=== PATIENT | male | born 1945 | race Caucasian/White ===

== ENCOUNTER 2024-04-24 09:33 | Outpatient (AMB) | payer MEDICARE, SELFPAY ==
--- NOTE | 2024-04-24 09:35 | A.OFFVIS_ITS ---
Vital Signs 04/24/24 09:38 Height 5 ft 9 in Weight 195 lb BMI 28.8 BP 155/70 H Blood Pressure Location Lt brachial Position Sitting Respiration 14 Pulse 57 Pulse Source Pulse Oximeter Pulse Oximetry (%) 99 Oxygen Delivery Method Room Air Intake Visit Reasons: Lumbar Facet Arthropathy Allergies No Known Allergies Allergy (Verified 04/24/24 09:40) Medication List - Last Reconciled 04/24/24 by Ambika Fleming LPN aspirin (Adult Aspirin Regimen) 81 mg PO DAILY atorvastatin 80 mg PO DAILY duloxetine (Cymbalta) 60 mg PO DAILY empagliflozin (Jardiance) 10 mg PO DAILY glipizide 10 mg PO BID hydrochlorothiazide 12.5 mg PO DAILY metformin 1,000 mg PO BID metoprolol succinate ER 50 mg PO DAILY ramipril 10 mg PO BID tamsulosin 0.4 mg PO BEDTIME valacyclovir (Valtrex) 500 mg PO DAILY HPI HPI Lumbar Facet Arthropathy: Details: 78-year-old male who presents today for evaluation of lumbar facet arthropathy Patient reports he had L3-L4 fusion done by Dr. RAO at [facility] in 08/2023, and he has had x-rays done prior to his back surgery(but there are no records at this time). Patient states he had received injection from Dr. Moulton, and had >75% relief following lumbar medial branch nerve blocks. He was referred here by [facility]. He states he has right hip pain which radiates to the back and this has been worsening for the past several years. He is unable to walk for a prolonged period of time and experiences severe pain especially with walking uphill but denies any pain with sitting. He also has severe pain in the foot and has difficulty standing for a long time. He states the pain is moderate but worsens occasionally depending on how long he has to stand/walk. Patient has a longstanding history of back and leg pain, and he first underwent an MRI in 2021, which showed severe for spinal stenosis at right L5-S1 level. He subsequently underwent a right L5-S1 laminotomy and some kind of fusion that he is uncertain of what it was. This took care of his right sided leg pain, but he continued to have residual low back pain on the right side. He then underwent a series of multiple injections, including 2 rounds of interlaminar epidural steroid injections, 1 caudal RENE and 1 SI joint injection at [facility], none of which provided any relief. Most recently he underwent a diagnostic facet block at L4-L5-S1 level that provided more than 50% relief with significant increase in his ability to ambulate for the duration of the diagnostic phase. He was subsequently planned for an L4-L5-S1 facet injection, but this was denied by insurance. He was then referred to us for consideration of repeat diagnostic block in anticipation of a lumbar radiofrequency ablation. Past procedures: 03/28/24: Lumbar Medial Branch Nerve Block - >75% relief. [facility] Medical History (Updated 04/24/24 @ 12:07 by Hector Auguste MD) Shingles BPH (benign prostatic hyperplasia) Diabetes mellitus Hypertension Hyperlipidemia Physical Exam Vital Signs: Last Vital Signs Pulse 57 04/24/24 09:38 Resp 14 04/24/24 09:38 BP 155/70 H 04/24/24 09:38 Pulse Ox 99 04/24/24 09:38 Oxygen Delivery Method Room Air 04/24/24 09:38 BMI result Body Mass Index 28.8 General: Appears afebrile. Alert and oriented. Mood and affect appropriate. Follows and participates in conversation appropriately. Respiratory effort is unlabored. Able to transition from sit to stand unassisted. Ambulates with bilaterally normal heel strike and toe off. Positive for facet loading on the right side. No significant pain with anterior column loading. Lumbar extension is significantly limited. Results Reviewed Results Reviewed: His MRI shows endplate degenerative changes at L3-4. Significant facet arthritis at L4-5 and L5-S1. I do not have his most recent imaging. This was based on my review of the MRI done in 2021, when this problem first started. Assessment & Plan Assessment & Plan (1) Lumbar spondylosis: Code(s): M47.816 - Spondylosis without myelopathy or radiculopathy, lumbar region Category: Medical (2) Vertebrogenic low back pain: Code(s): M54.51 - Vertebrogenic low back pain Category: Medical (3) Lumbar spinal stenosis: Code(s): M48.061 - Spinal stenosis, lumbar region without neurogenic claudication Category: Medical Plan Will schedule for a right L4-L5-S1 diagnostic medial branch blocks in anticipation of potential RFA vs PNS for his right axial low back pain. Discussed the risks and benefits of the procedure with the patient in detail. All questions were answered. A brochure was provided to the patient today in the office. Justification for interventional therapy: ? Patient with average pain > 6/10 ? Patient has exhausted conservative therapy ? Previous diagnostic injection provided >75% relief for the duration of the diagnostic phase . Patient has a good understanding of their pain condition and has appropriate mental and social support Scribed for Dr. Auguste by Ed medical sales consultant, on 04/24/2024. I, Dr. Auguste, have personally reviewed and agree with the information entered by the scribe. Coding Level of Care Code New Pt Level 4 (85835) Diagnoses Lumbar spondylosis M47.816 Vertebrogenic low back pain M54.51 Lumbar spinal stenosis M48.061
[2024-04-24 09:38] VITALS: BP 155/70; PULSE 57; RESP 14; O2SAT 99; BMI 28.8
== END 2024-04-24 10:56 | disposition home or self-care (01) ==
PROVIDERS: PCP Internal Medicine; Visit Provider Internal Medicine
DX: M47.816 Spondylosis without myelopathy or radiculopathy, lumbar region (principal); M54.51 Vertebrogenic low back pain; M48.061 Spinal stenosis, lumbar region without neurogenic claudication
CPT/HCPCS: 99204

== ENCOUNTER → 2024-04-24 09:33 | Outpatient (BNVA) | payer MEDICARE, SELFPAY | PROVIDERS: PCP Internal Medicine; Visit Provider Internal Medicine | DX: M47.816 Spondylosis without myelopathy or radiculopathy, lumbar region (principal); M54.51 Vertebrogenic low back pain; M48.061 Spinal stenosis, lumbar region without neurogenic claudication | CPT/HCPCS: 99202 ==

== ENCOUNTER 2024-05-16 06:09 | Outpatient (REF) | payer MEDICARE, SELFPAY ==
--- NOTE | ~2024-05-16 | FL_ITS ---
EXAMINATION: XR FLUOROSCOPY WITH IMAGES CLINICAL INFORMATION: Spondylosis without myelopathy or radiculopathy, lumbar region COMPARISON: None available. TECHNIQUE: Fluoroscopy provided to: Dr. Auguste Fluoroscopy time: 0.1 minutes DAP: 0.0234 mGycm2 Images: 2 FINDINGS: 2 coned-down images of the lower lumbar spine, demonstrating needle placement in the expected right facet joints L3-4, L4-5, and L5-S1 , with subsequent contrast injection. Partial laminectomies and fusion L5-S1 with hardware. Disc prosthesis present in L5-S1. No gross complication evident on the limited fluoroscopic spot images. FL/FL guidance in treatment room IMPRESSION: Fluoroscopic guidance. Please refer to the full operative report for details. Electronically signed by: Kt Plummer MD 07/11/2024 02:00 PM EDT
== END 2024-05-16 06:10 | disposition home or self-care (01) ==
LOC: CF 06:09
PROVIDERS: Visit Provider Internal Medicine
DX: M47.816 Spondylosis without myelopathy or radiculopathy, lumbar region (principal)
CPT/HCPCS: 64493; 64494; J2795; Q9967

== ENCOUNTER 2024-05-16 10:42 | Outpatient (AMB) | payer MEDICARE, SELFPAY ==
[2024-05-16 10:40] VITALS: BP 156/65; PULSE 50; RESP 16; O2SAT 97
[2024-05-16 11:15] VITALS: BP 165/65; PULSE 56; RESP 16; O2SAT 95
--- NOTE | 2024-05-16 11:20 | MHC.OFFVIS ---
Vital Signs 05/16/24 10:40 05/16/24 11:15 BP 156/65 H 165/65 H Blood Pressure Location Lt brachial Lt brachial Position Sitting Sitting Respiration 16 16 Pulse 50 56 Pulse Source Pulse Oximeter Pulse Oximeter Pulse Oximetry (%) 97 95 Oxygen Delivery Method Room Air Room Air Comment Pre-op Post-op Intake Visit Reasons: Right Dx L4-L5 MBB Allergies No Known Allergies Allergy (Verified 04/24/24 09:40) HPI HPI Right Dx L4-L5 MBB: Details: Patient presents for scheduled procedure. Denies any recent cough, cold, infection, fever or other significant changes in medical history since last office visit. [facility] Medical History (Updated 04/24/24 @ 12:07 by Hector Auguste MD) Shingles BPH (benign prostatic hyperplasia) Diabetes mellitus Hypertension Hyperlipidemia Physical Exam Vital Signs: Last Vital Signs Pulse 56 05/16/24 11:15 Resp 16 05/16/24 11:15 BP 165/65 H 05/16/24 11:15 Pulse Ox 95 05/16/24 11:15 Oxygen Delivery Method Room Air 05/16/24 11:15 Office Procedures Lumbar/Sacral Facet Inj Details: Lumbar Medial Branch Block, Right L3, L4 medial branches and L5 Dorsal Ramus (2 levels, 3 nerves) After obtaining written consent, pre-procedure blood pressure and pulse were recorded and are in the nursing record for review. The patient was placed in a prone position. The respective lumbosacral area was prepped with chloraprep and draped in sterile fashion. The skin over the target medial branch nerves was anesthetized with 0.5% lidocaine. A 22 gauge 3.5 inch needle was inserted into the target medial branch nerve under fluoroscopic guidance. No paresthesias were elicited with needle placement and aspiration was negative for blood and CSF. Next, 0.2cc of omnipaque 180 was injected to verify positioning. Next 0.5 ml 0.5% pivicaine was injected (0.5cc total per level). The identical procedure was performed at the remaining levels. The skin was cleansed and a sterile bandage was applied. Following the procedure the patient's vital signs were stable. The patient tolerated the procedure well and no complications were encountered. Following the procedure the patient's vital signs were stable. The patient was discharged home in good condition with post-procedural instructions. Time Out: Immediately prior to the procedure, the following was verbally confirmed that there is a signed consent form and that the correct patient, planned procedure, site and side are consistent with documentation and that necessary equipment and/or blood products are available prior to the start of the case. Complications: none EBL: <5 cc 68700 - with Fluoroscopy 23980 - second level, with Fluoroscopy Procedure code (CPT) selection complete Assessment & Plan Assessment & Plan (1) Lumbar spondylosis: Code(s): M47.816 - Spondylosis without myelopathy or radiculopathy, lumbar region Category: Medical Plan Patient is status post right L3, L4 medial branch and L5 dorsal ramus diagnostic nerve blocks. Patient tolerated procedure well and was discharged home in stable condition with discharge instructions. All questions were answered. We will follow-up via telephone or in clinic to assess response to therapy. A follow-up appointment was made during today's visit. Orders: Orders FL guidance in treatment room Today M47.816 - Spondylosis without myelopathy or radiculopathy, lumbar region Coding Level of Care Code Procedure Only Diagnoses Lumbar spondylosis M47.816 CPT Codes Facet Injection-Lumbar/Sacral - CPT: 38349 - with Fluoroscopy ([id number]) Facet Injection-Lumbar/Sacral - CPT: 24584 - second level, with Fluoroscopy ([id number])
== END 2024-05-16 11:13 | disposition home or self-care (01) ==
LOC: HO.PMCPRC 10:42
PROVIDERS: PCP Internal Medicine; Visit Provider Internal Medicine
DX: M47.816 Spondylosis without myelopathy or radiculopathy, lumbar region (principal)
CPT/HCPCS: 64493; 64494

== ENCOUNTER 2024-05-20 11:04 | Outpatient (AMB) | payer MEDICARE, SELFPAY ==
--- NOTE | 2024-05-20 11:05 | A.OFFVIS_ITS ---
Intake Visit Reasons: s/p Right Dx L4-L5 MBB Allergies No Known Allergies Allergy (Verified 04/24/24 09:40) HPI HPI s/p Right Dx L4-L5 MBB: Details: 78-year-old female who presents today via tele-visit for status post right diagnostic L4-L5 MBB The patient reports 75% relief for the duration of the anesthetic phase following the procedure. He reports good relief post-procedure and was able to walk up and down the hill. He states that his pain returned around 5:00 PM when he was walking his dog. He is amenable to proceed with radiofrequency ablation instead of temporary peripheral nerve stimulator. He had one round of diagnostic test injection with Dr. Moulton. Past procedures 05/16/24: Lumbar Medial Branch Block, Right L3, L4 medial branches and L5 Dorsal Ramus (2 levels, 3 nerves): 75% relief for the duration of the anesthetic phase. 03/28/24: Lumbar Medial Branch Nerve Block - >75% relief. [facility] Medical History (Updated 04/24/24 @ 12:07 by Hector Auguste MD) Shingles BPH (benign prostatic hyperplasia) Diabetes mellitus Hypertension Hyperlipidemia Review of Systems Const All systems reviewed & are unremarkable except as noted in HPI and below Telehealth Telehealth Telehealth Platform: Telephone Location of provider rendering services: practice address Location of patient: address on file Patient Identification confirmed using: Name, : Yes Telehealth method: voice only Patient verbally consented to treatment: Yes Patient verbally consented to billing insurance company: Yes Patient informed of any privacy concerns related to visit: Yes Minutes spent on Phone/Video with Pt.: 6 Results Reviewed Results Reviewed: No imaging is available for review. Assessment & Plan Assessment & Plan (1) Lumbar spondylosis: Code(s): M47.816 - Spondylosis without myelopathy or radiculopathy, lumbar region Category: Medical Plan We will schedule him for right L3-L4-L5 medial branch radiofrequency ablation. Discussed the risks and benefits of the procedure with the patient in detail. All questions were answered. The patient is on board with the plan. Justification for interventional therapy: ? Patient with average pain > 6/10 ? Patient has exhausted conservative therapy ? Patient unable to tolerate physical therapy due to pain. ? Previous both diagnostic injections provided greater than 75% relief for the duration of the anesthetic phase. . Patient has a good understanding of their pain condition and has appropriate mental and social support Scribed for Dr. Auguste by Mejia eVlazco, medical lab assistant, on 05/20/2024. I, Dr. Auguste, have personally reviewed and agree with the information entered by the scribe. Coding Level of Care Code Tele Est Pt Level 3 (71570) Diagnoses Lumbar spondylosis M47.816
== END 2024-05-20 11:05 | disposition home or self-care (01) ==
LOC: HO.PMC 11:04
PROVIDERS: PCP Internal Medicine; Visit Provider Internal Medicine
DX: M47.816 Spondylosis without myelopathy or radiculopathy, lumbar region (principal)
CPT/HCPCS: 99213

== ENCOUNTER → 2024-05-20 11:04 | Outpatient (BNVA) | payer MEDICARE, SELFPAY | PROVIDERS: PCP Internal Medicine; Visit Provider Internal Medicine ==

== ENCOUNTER 2024-07-11 06:08 | Outpatient (REF) | payer MEDICARE, SELFPAY | END 2024-07-11 06:09 | disposition home or self-care (01) | LOC: CF 06:08 | PROVIDERS: Visit Provider Internal Medicine | DX: M47.816 Spondylosis without myelopathy or radiculopathy, lumbar region (principal) | CPT/HCPCS: 64635; 64636; J2795 ==

== ENCOUNTER 2024-07-11 10:46 | Outpatient (AMB) | payer MEDICARE, SELFPAY ==
[2024-07-11 11:24] VITALS: BP 120/59; PULSE 63; RESP 17; O2SAT 98
--- NOTE | 2024-07-11 12:22 | MHC.OFFVIS ---
Vital Signs 07/11/24 11:24 07/11/24 12:23 BP 120/59 L 143/67 H Blood Pressure Location Lt brachial Lt brachial Position Sitting Sitting Respiration 17 18 Pulse 63 64 Pulse Source Pulse Oximeter Pulse Oximeter Pulse Oximetry (%) 98 99 Oxygen Delivery Method Room Air Room Air Comment Pre-op Post-op Intake Visit Reasons: Right L3-L4-L5 RFA Allergies No Known Allergies Allergy (Verified 04/24/24 09:40) HPI HPI Right L3-L4-L5 RFA: Details: Patient presents for scheduled procedure. Denies any recent cough, cold, infection, fever or other significant changes in medical history since last office visit. FORMERLY [facility] Medical History (Updated 04/24/24 @ 12:07 by Hector Auguste MD) Shingles BPH (benign prostatic hyperplasia) Diabetes mellitus Hypertension Hyperlipidemia Physical Exam Vital Signs: Last Vital Signs Pulse 64 07/11/24 12:23 Resp 18 07/11/24 12:23 BP 143/67 H 07/11/24 12:23 Pulse Ox 99 07/11/24 12:23 Oxygen Delivery Method Room Air 07/11/24 12:23 Office Procedures Details: Radiofrequency lesioning medial branch nerves, RIGHT L3 medial branch and L5 dorsal ramus (L3/4 and L5/S1) (2 levels, 2 nerves) After obtaining written consent, pre-procedure blood pressure and heart rate were stable and recorded in the nursing record. Standard monitors were applied. The patient was placed in the prone position. The lumbar area was prepped with chloraprep and draped in sterile fashion. The skin over the target for each medial branch nerve was anesthetized with 0.5% lidocaine. An 18 gauge radiofrequency cannula was advanced to each target site under fluoroscopic guidance. The anatomical landmarks for L4 medial branch could not be reliably visualized due to hardware presence so that needle placement was aborted. No paresthesias were elicited with needle placement and aspiration was negative for heme and CSF. Impedences were verified under 600 ohms. Motor testing (2 Hz) confirmed needle placement at each site within the appropriate voltage thresholds. Each site was injected with 0.5 ml 2% preservative-free lidocaine. Radiofrequency lesioning was performed for 90 seconds at 80 deg Celcius. The needle was removed, skin cleansed and a sterile bandage was applied. The patient tolerated the procedure well and no complications were encountered. Following the procedure the patient's vital signs were stable. The patient was discharged home in good condition with post-procedural instructions. Time Out: Immediately prior to the procedure, the following was verbally confirmed that there is a signed consent form and that the correct patient, planned procedure, site and side are consistent with documentation and that necessary equipment and/or blood products are available prior to the start of the case. Complications: none EBL: <5 cc 84057 - RFA Lumbar Medial Branches 04206 - Lumbar Medial Branches ADDNL Procedure code (CPT) selection complete Office Meds lidocaine (PF) 10 mg/mL (1 %) injection solution Performing Provider: Merline Patrick APRN, CNP Performing Location: [facility] Documented (not given) by: Hector Auguste MD on 07/11/24 13:23 Dose Route Admin Location Dispensed Lot Number Expiration Date NDC Material Handling Equipment [employer] 5 mL subcut mL Assessment & Plan Assessment & Plan (1) Lumbar spondylosis: Code(s): M47.816 - Spondylosis without myelopathy or radiculopathy, lumbar region Category: Medical Plan Patient is status post right L3 medial branch and L5 DR radiofrequency ablation. Patient tolerated procedure well and was discharged home in stable condition with discharge instructions. All questions were answered. We will follow-up via telephone or in clinic to assess response to therapy. A follow-up appointment was made during today's visit. Orders: Orders FL guidance in treatment room Today Merline Patrick APRN, CNP M47.816 - Spondylosis without myelopathy or radiculopathy, lumbar region AMB RFA Radiofrequency Ablation Pain Management Today Merline Patrick APRN, CNP M47.816 - Spondylosis without myelopathy or radiculopathy, lumbar region Medications: New lidocaine (PF) 5 mL subcut ONCE 5 mL 0RF Hector Auguste MD M47.816 - Spondylosis without myelopathy or radiculopathy, lumbar region Coding Level of Care Code Procedure Only Diagnoses Lumbar spondylosis M47.816 CPT Codes Radiofrequency Ablation - Rad-Ablation 3: 74727 - RFA Lumbar Medial Branches ([id number]) Radiofrequency Ablation - Rad-Ablation 4: 36901 - Lumbar Medial Branches ADDNL ([id number])
[2024-07-11 12:23] VITALS: BP 143/67; PULSE 64; RESP 18; O2SAT 99
== END 2024-07-11 12:22 | disposition home or self-care (01) ==
LOC: HO.PMCPRC 10:46
PROVIDERS: PCP Internal Medicine; Visit Provider Internal Medicine
DX: M47.816 Spondylosis without myelopathy or radiculopathy, lumbar region (principal)
CPT/HCPCS: 64635; 64636

== ENCOUNTER 2024-08-09 09:24 | Outpatient (AMB) | payer MEDICARE, SELFPAY ==
--- NOTE | 2024-08-09 09:38 | MHC.OFFVIS ---
Vital Signs 08/09/24 09:40 Height 5 ft 9 in Weight 198 lb BMI 29.2 BP 134/61 Blood Pressure Location Lt brachial Position Sitting Respiration 15 Pulse 62 Pulse Source Pulse Oximeter Pulse Oximetry (%) 100 Oxygen Delivery Method Room Air Intake Visit Reasons: s/p right L3-L4-L5 RFA Allergies No Known Allergies Allergy (Verified 08/09/24 09:41) Medication List - Last Reconciled 08/09/24 by Ambika Fleming LPN aspirin (Adult Aspirin Regimen) 81 mg PO DAILY atorvastatin 80 mg PO DAILY duloxetine (Cymbalta) 60 mg PO DAILY empagliflozin (Jardiance) 10 mg PO DAILY glipizide 10 mg PO BID hydrochlorothiazide 12.5 mg PO DAILY metformin 1,000 mg PO BID metoprolol succinate ER 50 mg PO DAILY ramipril 10 mg PO BID tamsulosin 0.4 mg PO BEDTIME valacyclovir (Valtrex) 500 mg PO DAILY HPI HPI s/p right L3-L4-L5 RFA: Details: 78-year-old male who presents today to the office for a status post right L3-L4-L5 RFA. He had some initial pain relief and was able to do some gentle walking. However, his pain started to return to the same location as before 1-2 months later. He is unable to bend or do his ADLs now. He has difficulty climbing stairs and leaning/bending forward while walking or standing but is able to walk on a flat surface. He denies any pain when sitting down. He has done an MRI and x-ray of the back. He had an MRI scan in August 2023 and states he underwent back surgery with Dr. Kerr at [facility]. He had an x-ray post-surgery. He states that his radiating pain down his leg was resolved post-surgery.?He lives with his . Past procedures 07/11/24: Radiofrequency lesioning medial branch nerves, RIGHT L3 medial branch and L5 dorsal ramus (L3/4 and L5/S1) (2 levels, 2 nerves): % relief. 05/16/24: Lumbar Medial Branch Block, Right L3, L4 medial branches and L5 Dorsal Ramus (2 levels, 3 nerves): 75% relief for the duration of the anesthetic phase. 03/28/24: Lumbar Medial Branch Nerve Block - >75% relief. [facility] Medical History (Updated 08/22/24 @ 13:50 by Hector Auguste MD) Shingles BPH (benign prostatic hyperplasia) Diabetes mellitus Hypertension Hyperlipidemia Review of Systems Const All systems reviewed & are unremarkable except as noted in HPI and below Physical Exam Vital Signs: Last Vital Signs Pulse 62 08/09/24 09:40 Resp 15 08/09/24 09:40 BP 134/61 08/09/24 09:40 Pulse Ox 100 08/09/24 09:40 Oxygen Delivery Method Room Air 08/09/24 09:40 BMI result Body Mass Index 29.2 General: Appears afebrile. Alert and oriented. Mood and affect appropriate. Follows and participates in conversation appropriately. Respiratory effort is unlabored. Able to transition from sit to stand unassisted. Ambulates with bilaterally normal heel strike and toe off. Results Reviewed Results Reviewed: August 2023: MRI of Lumbar Spine. Showed moderate spinal stenosis at L3-4 level with mild to moderate bilateral foraminal narrowing. There is significant ligamentum flavum hypertrophy and L4-5 central canal stenosis and disc herniations at L5-S1 causing right L5 nerve root compression and left traversing S1 nerve root compression. Assessment & Plan Assessment & Plan (1) Lumbar spondylosis: Code(s): M47.816 - Spondylosis without myelopathy or radiculopathy, lumbar region Category: Medical (2) Chronic low back pain: Code(s): M54.50 - Low back pain, unspecified; G89.29 - Other chronic pain Category: Medical Plan We discussed multiple different treatment options and based on order of invasiveness, we have decided to proceed with temporary nerve stimulation as a next step in his management to see if this the mediated pain and might respond to temporary nerve stimulation. We will plan for a right temporary L3 medial branch nerve stimulator placement. Discussed the risks and benefits of the procedure with the patient in detail. All questions were answered. The patient is on board with the plan. Justification for interventional therapy: ? Patient with average pain > 6/10 ? Patient has exhausted conservative therapy. ? Patient unable to tolerate physical therapy due to pain. ? Failed radiofrequency ablation of the lumbar medial branches . Patient has a good understanding of their pain condition and has appropriate mental and social support Scribed for Dr. Auguste by Mejia Velazco, medical assistant ob gyn, on 08/09/2024. I, Dr. Auguste, have personally reviewed and agree with the information entered by the scribe. Coding Level of Care Code Est Pt Level 3 (26679) Diagnoses Lumbar spondylosis M47.816 Chronic low back pain M54.50; G89.29
[2024-08-09 09:40] VITALS: BP 134/61; PULSE 62; RESP 15; O2SAT 100; BMI 29.2
== END 2024-08-09 10:45 | disposition home or self-care (01) ==
PROVIDERS: PCP Internal Medicine; Visit Provider Internal Medicine
DX: M47.816 Spondylosis without myelopathy or radiculopathy, lumbar region (principal); M54.50 Low back pain, unspecified; G89.29 Other chronic pain
CPT/HCPCS: 99213

== ENCOUNTER → 2024-08-09 09:24 | Outpatient (BNVA) | payer SELFPAY | PROVIDERS: PCP Internal Medicine; Visit Provider Internal Medicine | DX: M47.816 Spondylosis without myelopathy or radiculopathy, lumbar region (principal); G89.29 Other chronic pain; M54.50 Low back pain, unspecified; Z98.890 Other specified postprocedural states | CPT/HCPCS: 99212 ==

== ENCOUNTER 2024-08-22 06:25 | Outpatient (REF) | payer MEDICARE, SELFPAY | END 2024-08-22 06:26 | disposition home or self-care (01) | LOC: CF 06:25 | PROVIDERS: Visit Provider Internal Medicine | DX: M47.816 Spondylosis without myelopathy or radiculopathy, lumbar region (principal); M54.50 Low back pain, unspecified; G89.29 Other chronic pain | CPT/HCPCS: 64555; C1778; J2003 ==

== ENCOUNTER 2024-08-22 12:00 | Outpatient (AMB) | payer MEDICARE, SELFPAY ==
[2024-08-22 12:08] VITALS: BP 165/72; PULSE 67; O2SAT 100
--- NOTE | 2024-08-22 12:08 | A.OFFVIS_ITS ---
Vital Signs 08/22/24 12:08 08/22/24 12:42 BP 165/72 H 161/69 H Blood Pressure Location Lt brachial Lt brachial Position Sitting Sitting Pulse 67 68 Pulse Source Pulse Oximeter Pulse Oximeter Pulse Oximetry (%) 100 99 Oxygen Delivery Method Room Air Room Air Intake Visit Reasons: right L3 Sprint Allergies No Known Allergies Allergy (Verified 08/09/24 09:41) HPI HPI right L3 Sprint: Details: Patient presents for scheduled procedure. Denies any recent cough, cold, infection, fever or other significant changes in medical history since last office visit. [facility] Medical History (Updated 08/22/24 @ 13:50 by Hector Auguste MD) Shingles BPH (benign prostatic hyperplasia) Diabetes mellitus Hypertension Hyperlipidemia Physical Exam Vital Signs: Last Vital Signs Pulse 68 08/22/24 12:42 BP 161/69 H 08/22/24 12:42 Pulse Ox 99 08/22/24 12:42 Oxygen Delivery Method Room Air 08/22/24 12:42 Office Procedures Details: Lumbar Medial Branch Nerve Stimulation Lead Placement, SPR (Sprint) System, Right L3 ? After the risks, benefits and alternatives were discussed with the patient and informed consent was obtained, patient was placed in the prone position and padded to foster comfort. The skin overlying the lumbosacral spine was prepped and draped in sterile fashion. Fluoroscopy was used to identify the spinous process and lamina in the center of the patient?s region of pain. After identifying and marking the intended target along the course of the medial branch nerve, the skin around the planned entry point and the subcutaneous tissues were injected with lidocaine 1%. An introducer needle and stimulating probe were assembled, inserted and advanced along the intended course of the medial branch nerve as it traverses the lamina medial and inferior to the zygapophyseal joint, taking care to maintain the proper depth of insertion as the introducer is advanced under fluoroscopic guidance. The introducer needle was delivered to a location in proximity to the nerve. Multiple stimulation parameters were used to deliver stimulation to the target medial branch nerve in concert with stimulating at multiple positions around the nerve. Nerve target acquisition was confirmed noting generation of paresthesias in the paravertebral regions corresponding to the level being stimulated. Various electrical parameter combinations were tested, and the lead location was adjusted (physically relocated) until the patient indicated paresthesia/muscle tension overlapping the distribution of the patient?s typical region of pain. The stimulating probe was removed from the introducer and a percutaneous lead was guided through the needle and delivered to a location in similar proximity to the nerve. Final location was verified with electrical stimulation and documented with fluoroscopy. The introducer needle was removed, and the exposed end of the percutaneous lead was attached to an external stimulator unit. Various electrical parameter combinations were again tested until the patient indicated paresthesia or muscle tension overlapping the distribution of the patient?s typical region of pain. After confirming that lead impedance was in the normal range, the external unit was detached, the needle was removed, and the lead was anchored at the skin. The lead was threaded into the connector block and electrical continuity and desired patient response was confirmed. The connector block was attached to the external stimulator unit. The site was covered with a sterile occlusive dressing. The patient was observed for stability of vital signs and comfort. Sprint PNS Device: Sprint PNS Device [id number] Percutaneous Peripheral Neuroelectrode Procedure: 71948 - Percutaneous Peripheral Neuroelectrode Procedure code (CPT) selection complete Office Meds lidocaine HCl 10 mg/mL (1 %) injection solution Performing Provider: Merline Patrick APRN, MARISEL Performing Location: [facility] [place] [facility] Administered by: Ambika Fleming LPN on 08/22/24 12:24 Dose Route Admin Location Dispensed Lot Number Expiration Date [facility] Loss Mitigation Specialist 5 mL subcut 5 mL Assessment & Plan Assessment & Plan (1) Lumbar spondylosis: Code(s): M47.816 - Spondylosis without myelopathy or radiculopathy, lumbar region Category: Medical (2) Chronic low back pain: Code(s): M54.50 - Low back pain, unspecified; G89.29 - Other chronic pain Category: Medical Plan Patient is status post temporary right L3 medial branch nerve stimulator placement. Patient tolerated procedure well and was discharged home in stable condition with discharge instructions. All questions were answered. We will follow-up via telephone or in clinic to assess response to therapy. A follow-up appointment was made during today's visit. Orders: Orders AMB Sprint PNS Today M47.816 - Spondylosis without myelopathy or radiculopathy, lumbar region FL guidance in treatment room Today M47.816 - Spondylosis without myelopathy or radiculopathy, lumbar region Coding Level of Care Code Procedure Only Diagnoses Lumbar spondylosis M47.816 Chronic low back pain M54.50; G89.29 CPT Codes Sprint PNS - Sprint PNS Device: Sprint PNS Device ([id number]) Sprint PNS - SPRINT: 27070 - Percutaneous Peripheral Neuroelectrode ([id number]) Implantable Device Implantable Device Implantable Devices Qty Loss Mitigation Specialist Implant Date Expiration Date Analgesic PENS system 1 [employer] 08/22/24 09/18/25
[2024-08-22 12:42] VITALS: BP 161/69; PULSE 68; O2SAT 99
== END 2024-08-22 13:07 | disposition home or self-care (01) ==
LOC: HO.PMCPRC 12:00
PROVIDERS: PCP Internal Medicine; Visit Provider Internal Medicine
DX: M47.816 Spondylosis without myelopathy or radiculopathy, lumbar region (principal); M54.50 Low back pain, unspecified; G89.29 Other chronic pain
CPT/HCPCS: 64555

== ENCOUNTER 2024-08-30 11:23 | Outpatient (AMB) | payer MEDICARE, SELFPAY ==
--- NOTE | 2024-08-30 11:24 | A.OFFVIS_ITS ---
Vital Signs 08/30/24 11:26 Height 5 ft 9 in Weight 198 lb BMI 29.2 BP 152/70 H Blood Pressure Location Lt brachial Position Sitting Respiration 15 Pulse 56 Pulse Source Pulse Oximeter Intake Visit Reasons: s/p right L3 Sprint Allergies No Known Allergies Allergy (Verified 08/30/24 11:27) Medication List - Last Reconciled 08/30/24 by Ambika Fleming LPN aspirin (Adult Aspirin Regimen) 81 mg PO DAILY atorvastatin 80 mg PO DAILY duloxetine (Cymbalta) 60 mg PO DAILY empagliflozin (Jardiance) 10 mg PO DAILY glipizide 10 mg PO BID hydrochlorothiazide 12.5 mg PO DAILY metformin 1,000 mg PO BID metoprolol succinate ER 50 mg PO DAILY ramipril 10 mg PO BID tamsulosin 0.4 mg PO BEDTIME valacyclovir (Valtrex) 500 mg PO DAILY HPI HPI s/p right L3 Sprint: Details: 79-year-old male who presents today to the office for a status post right L3 sprint. He reports significant good relief from the device. He states that he changed the dressing once at home. He denies any known allergies to dressings. Past procedures 08/22/24: Lumbar Medial Branch Nerve Stimulation Lead Placement, SPR (Sprint) System, Right L3: Good initial relief. 07/11/24: Radiofrequency lesioning medial branch nerves, RIGHT L3 medial branch and L5 dorsal ramus (L3/4 and L5/S1) (2 levels, 2 nerves): % relief. 05/16/24: Lumbar Medial Branch Block, Right L3, L4 medial branches and L5 Dorsal Ramus (2 levels, 3 nerves): 75% relief for the duration of the anesthetic phase. 03/28/24: Lumbar Medial Branch Nerve Block - >75% relief. [facility] Medical History (Updated 08/22/24 @ 13:50 by Hector Auguste MD) Shingles BPH (benign prostatic hyperplasia) Diabetes mellitus Hypertension Hyperlipidemia Review of Systems Const All systems reviewed & are unremarkable except as noted in HPI and below Physical Exam Vital Signs: Last Vital Signs Pulse 56 08/30/24 11:26 Resp 15 08/30/24 11:26 BP 152/70 H 08/30/24 11:26 BMI result Body Mass Index 29.2 General: Appears afebrile. Alert and oriented. Mood and affect appropriate. Follows and participates in conversation appropriately. Respiratory effort is unlabored. Able to transition from sit to stand unassisted. Ambulates with bilaterally normal heel strike and toe off. The lead insertion site was clean, dry, intact. Results Reviewed Results Reviewed: No imaging is available for review. Assessment & Plan Assessment & Plan (1) Chronic low back pain: Code(s): M54.50 - Low back pain, unspecified; G89.29 - Other chronic pain Category: Medical (2) Lumbar spondylosis: Code(s): M47.816 - Spondylosis without myelopathy or radiculopathy, lumbar region Category: Medical Plan The patient will continue to use the device. The lead insertion site was clean, dry, intact. The dressing was changed today in the office. He will follow up in seven weeks for removal of device. Scribed for Dr. Auguste by Mejia Velazco, medical technologist generalist, on 08/30/2024. I, Dr. Auguste, have personally reviewed and agree with the information entered by the scribe. Coding Level of Care Code Est Pt Level 3 (01336) Diagnoses Chronic low back pain M54.50; G89.29 Lumbar spondylosis M47.816
[2024-08-30 11:26] VITALS: BP 152/70; PULSE 56; RESP 15; BMI 29.2
== END 2024-08-30 11:31 | disposition home or self-care (01) ==
PROVIDERS: PCP Internal Medicine; Visit Provider Internal Medicine
DX: M54.50 Low back pain, unspecified (principal); G89.29 Other chronic pain; M47.816 Spondylosis without myelopathy or radiculopathy, lumbar region
CPT/HCPCS: 99024

== ENCOUNTER → 2024-08-30 11:23 | Outpatient (BNVA) | payer MEDICARE, SELFPAY | PROVIDERS: PCP Internal Medicine; Visit Provider Internal Medicine | DX: M54.50 Low back pain, unspecified (principal); G89.29 Other chronic pain; M47.816 Spondylosis without myelopathy or radiculopathy, lumbar region | CPT/HCPCS: 99212 ==

== ENCOUNTER → 2024-09-09 10:20 | Outpatient (BNVA) | payer MEDICARE, SELFPAY | PROVIDERS: PCP Internal Medicine; Visit Provider Internal Medicine ==

== ENCOUNTER 2024-09-19 06:06 | Outpatient (REF) | payer MEDICARE, SELFPAY ==
--- NOTE | ~2024-09-19 | FL_ITS ---
EXAMINATION: FLUORO GUIDANCE IN TREATMENT ROOM CLINICAL INFORMATION: Spondylosis without myelopathy or radiculopathy, lumbar region. COMPARISON: None available. TECHNIQUE: Fluoroscopy supervised by: Dr. Hector Auguste. Fluoroscopy time: 0.1 minute. Cumulative Dose: 2.48 mGy. DAP: 0.0206 mGy-m2 (milligray-meter squared). Images: 4. FINDINGS: [place]dwell are present on the right along with a wire seen in the final image just above the patient's fixation hardware. FL/FL guidance in treatment room IMPRESSION: Fluoroscopy during procedure. Please see procedure report for additional information. Electronically signed by: Morgan Rao MD 11/13/2024 10:02 AM RADHA AGUILAR
== END 2024-09-19 06:07 | disposition home or self-care (01) ==
LOC: CF 06:06
PROVIDERS: Visit Provider Internal Medicine
DX: M47.816 Spondylosis without myelopathy or radiculopathy, lumbar region (principal); M54.50 Low back pain, unspecified; G89.29 Other chronic pain
CPT/HCPCS: 64555; C1778; J2003

== ENCOUNTER 2024-09-19 08:10 | Outpatient (AMB) | payer MEDICARE, SELFPAY ==
--- NOTE | 2024-09-19 08:19 | A.OFFVIS_ITS ---
Vital Signs 09/19/24 08:23 09/19/24 09:17 BP 138/65 132/55 L Blood Pressure Location Lt brachial Rt brachial Position Sitting Sitting Pulse 58 60 Pulse Source Pulse Oximeter Pulse Oximeter Pulse Oximetry (%) 98 99 Oxygen Delivery Method Room Air Room Air Intake Visit Reasons: replacement Sprint Allergies No Known Allergies Allergy (Verified 08/30/24 11:27) HPI HPI replacement Sprint: Details: Patient presents for scheduled procedure. Denies any recent cough, cold, infection, fever or other significant changes in medical history since last office visit. [facility] Medical History (Updated 08/22/24 @ 13:50 by Hector Auguste MD) Shingles BPH (benign prostatic hyperplasia) Diabetes mellitus Hypertension Hyperlipidemia Physical Exam Vital Signs: Last Vital Signs Pulse 60 09/19/24 09:17 BP 132/55 L 09/19/24 09:17 Pulse Ox 99 09/19/24 09:17 Oxygen Delivery Method Room Air 09/19/24 09:17 Office Procedures Details: Lumbar Medial Branch Nerve Stimulation Lead Replacement, SPR (Sprint) System, right L3 ? After the risks, benefits and alternatives were discussed with the patient and informed consent was obtained, patient was placed in the prone position and padded to foster comfort. The skin overlying the lumbosacral spine was prepped and draped in sterile fashion. The right-sided lead was noted to be partially extruded. The remaining portion of the lead still under the skin was removed with tip intact. After identifying and marking the intended target along the course of the medial branch nerve, the skin around the planned entry point and the subcutaneous tissues were injected with lidocaine 1%. An introducer needle and stimulating probe were assembled, inserted and advanced along the intended course of the medial branch nerve as it traverses the lamina medial and inferior to the zygapophyseal joint, taking care to maintain the proper depth of insertion as the introducer is advanced under fluoroscopic guid ance. The introducer needle was delivered to a location in proximity to the nerve. Multiple stimulation parameters were used to deliver stimulation to the target medial branch nerve in concert with stimulating at multiple positions around the nerve. Nerve target acquisition was confirmed noting generation of paresthesias in the paravertebral regions corresponding to the level being stimulated. Va rious electrical parameter combinations were tested, and the lead location was adjusted (physically relocated) until the patient indicated paresthesia/muscle tension overlapping the distribution of the patient?s typical region of pain. The stimulating probe was removed from the introducer and a percutaneous lead was guided through the needle and delivered to a location in similar proximity to the nerve. Final location was verified with electrical stimulation and documented with fluoroscopy. The introducer needle was removed, and the exposed end of the percutaneous lead was attached to an external stimulator unit. Various electrical parameter combinations were again tested until the patient indicated paresthesia or muscle tension overlapping the distribution of the patient?s typical region of pain. After confirming that lead impedance was in the normal range, the external unit was detached, the needle was removed, and the lead was anchored at the skin. The lead was threaded into the connector block and electrical continuity and desired patient response was confirmed. The connector block was attached to the external stimulator unit. The site was covered with a sterile occlusive dressing. The patient was observed for stability of vital signs and comfort. Sprint PNS Device: Sprint PNS Device [id number] Percutaneous Peripheral Neuroelectrode Procedure: 35179 - Percutaneous Peripheral Neuroelectrode Procedure code (CPT) selection complete Office Meds lidocaine HCl 10 mg/mL (1 %) injection solution Performing Provider: Merline Patrick APRN, RIPPLER Performing Location: [facility] [place] [facility] Administered by: Hector Auguste MD on 09/19/24 10:10 2 Dose Route Admin Location Dispensed Lot Number Expiration Date [facility] Call Center Operations Manager 5 mL subcut 5 mL Assessment & Plan Assessment & Plan (1) Chronic low back pain: Code(s): M54.50 - Low back pain, unspecified; G89.29 - Other chronic pain Category: Medical (2) Lumbar spondylosis: Code(s): M47.816 - Spondylosis without myelopathy or radiculopathy, lumbar region Category: Medical Plan Patient is status post replacement of the temporary right L3 medial branch nerve stimulator. Patient tolerated procedure well and was discharged home in stable condition with discharge instructions. All questions were answered. We will follow-up via telephone or in clinic to assess response to therapy. A follow-up appointment was made during today's visit. Orders: Orders FL guidance in treatment room 09/19/24 M47.816 - Spondylosis without myelopathy or radiculopathy, lumbar region AMB Sprint PNS 09/19/24 M47.816 - Spondylosis without myelopathy or radiculopathy, lumbar region Coding Level of Care Code Procedure Only Diagnoses Chronic low back pain M54.50; G89.29 Lumbar spondylosis M47.816 CPT Codes Sprint PNS - Sprint PNS Device: Sprint PNS Device ([id number]) Sprint PNS - SPRINT: 30932 - Percutaneous Peripheral Neuroelectrode ([id number])
[2024-09-19 08:23] VITALS: BP 138/65; PULSE 58; O2SAT 98
[2024-09-19 09:17] VITALS: BP 132/55; PULSE 60; O2SAT 99
== END 2024-09-19 09:23 | disposition home or self-care (01) ==
LOC: HO.PMCPRC 08:10
PROVIDERS: PCP Internal Medicine; Visit Provider Internal Medicine
DX: M47.816 Spondylosis without myelopathy or radiculopathy, lumbar region (principal)
CPT/HCPCS: 64555